=== PATIENT | female | born 1985 | race African-American/Black ===

== ENCOUNTER 2018-12-04 11:57 | Emergency (ER) | payer SELFPAY ==
[2018-12-04 12:19] VITALS: BP 137/75; PULSE 84; TEMP 98.7; BMI 42.3
--- NOTE | 2018-12-04 12:58 | PDOC ---
History of Present Illness - General Chief Complaint: Sore Throat Stated Complaint: SORE THROAT Time Seen by Provider: 12/04/18 12:37 History Source: Patient Exam Limitations: Clinical Condition - History of Present Illness Initial Comments: 12/04/18 12:55 Patient with no significant past medical history presented with complaint of pain and swelling around tongue piercing which was done a month ago and feels she is getting infection from tongue piercing. Patient reports starting to have sore throat 2 days ago but swelling to piercing started a week ago. Denies fever, chills, painful swallowing. Denies any other symptoms Is this a multiple visit Asthma Patient?: No Timing/Duration: 1 week Past History - Past Medical History Allergies/Adverse Reactions: Allergies Allergy/AdvReac Type Severity Reaction Status Date / Time No Known Allergies Allergy Verified 12/04/18 12:17 Home Medications: Ambulatory Orders Amox-Tr/K Cl [Augmentin - 875Mg Tablet] 1 tab PO BID #14 tablet 12/04/18 Fluconazole [Diflucan] 150 mg PO ONCE #1 tablet 12/04/18 COPD: No - Psycho Social/Smoking Cessation Hx Smoking History: Never smoked Review of Systems - Review of Systems Able to Perform ROS?: Yes Is the patient limited Italian proficient: No Constitutional: No: Chills, Fever, Malaise HEENTM: Yes: Symptoms Reported, See HPI, Throat Pain, Other (tongue swelling). No: Eye Pain, Blurred Vision, Tearing, Recent change in vision, Double Vision, Cataracts, Ear Pain, Ocular Prothesis, Ear Discharge, Nose Pain, Nose Congestion , Tinnitus, Nose Bleeding, Hearing Loss, Throat Swelling, Mouth Pain, Dental Problems, Difficulty Swallowing, Mouth Swelling Respiratory: No: Symptoms reported Cardiac (ROS): No: Symptoms Reported ABD/GI: No: Symptoms Reported : No: Symptoms Reported Musculoskeletal: No: Symptoms Reported All Other Systems: Reviewed and Negative *Physical Exam - Vital Signs Last Vital Signs Temp Pulse Resp BP Pulse Ox 98.7 F 84 18 137/75 97 12/04/18 12:09 12/04/18 12:09 12/04/18 12:09 12/04/18 12:09 12/04/18 12:09 - Physical Exam Comments: 12/04/18 12:53 GENERAL: Well developed, well nourished. Awake and alert. No acute distress. HEENT: Mild swelling around tongue piercing with mild yellow discoloration around opening of piercing of tongue with metal piercing in tongue. Normocephalic, atraumatic. PERRLA, EOMI. No conjunctival pallor. Sclera are non- icteric. Moist mucous membranes. Oropharynx is clear. NECK: Supple. Full ROM. CARDIOVASCULAR: Regular rate and rhythm. No murmurs, rubs, or gallops. Distal pulses are 2+ and symmetric. PULMONARY: No evidence of respiratory distress. Lungs clear to auscultation bilaterally. No wheezing, rales or rhonchi. MUSCULOSKELETAL Normal range of motion at all joints. SKIN: Warm and dry. Normal capillary refill. No rashes. NEUROLOGICAL: Alert, awake, appropriate. Gait is normal without ataxia. PSYCHIATRIC: Cooperative. Good eye contact. Appropriate mood General Appearance: Yes: Nourished, Appropriately Dressed. No: Apparent Distress Medical Decision Making - Medical Decision Making 12/04/18 12:58 Patient with no significant past medical history presented with complaint of pain and swelling around tongue piercing which was done a month ago and feels she is getting infection from tongue piercing. Patient reports starting to have sore throat 2 days ago but swelling to piercing started a week ago. Denies fever, chills, painful swallowing. Denies any other symptoms Exam significant for mild swelling around metal tongue piercing with mild yellow discoloration of skin of tongue around Piercing. No erythema to area oropharyngeal erythema. Given the likelihood of infection from piercing, patient was discharged on Augmentin antibiotics for a week for possible infection with ENT follow-up. Rapid strep negative. throat culture ordered to evaluate for infection. Discharge - Discharge Information Problems reviewed: Yes Clinical Impression/Diagnosis: Pierced tongue infection Pharyngitis Qualifiers: Pharyngitis/tonsillitis etiology: unspecified etiology Qualified Code(s): J02.9 - Acute pharyngitis, unspecified Condition: Stable Disposition: HOME - Admission No - Additional Discharge Information Prescriptions: Amox-Tr/K Cl [Augmentin - 875Mg Tablet] 1 tab PO BID #14 tablet Fluconazole [Diflucan] 150 mg PO ONCE #1 tablet - Follow up/Referral Referrals: Faizan Lerma MD [Staff Physician] - - Patient Discharge Instructions Patient Printed Discharge Instructions: DI for Pharyngitis/Tonsillopharyngitis -- Adult Additional Instructions: Take medications as prescribed. Rinse mouth with salt water 2-3 times a day as needed for tongue swelling. Follow-up referred ENT if symptoms persist for more than 4 days. - Post Discharge Activity
== END 2018-12-04 13:10 | disposition home or self-care (01) ==
LOC: JERFT 11:57
DX: K12.2 Cellulitis and abscess of mouth (principal); J02.9 Acute pharyngitis, unspecified
CPT/HCPCS: 87070; 87880; 99281-25